=== PATIENT | female | born 1965 | race Caucasian/White ===

== ENCOUNTER 2018-03-12 21:09 | Emergency (ER) | payer MEDICAID ==
--- NOTE | 2018-03-12 21:22 | Emergency Department Record ---
History of Present Illness - General Chief complaint: Pain Stated complaint: LEFT SHOULDER PAIN Time Seen by Provider: 03/12/18 21:17 Source: Patient Mode of Arrival: Ambulatory Limitations: No limitations - History of Present Illness Initial comments: 52 yo female presents with shoulder pain for two months. She states the shoulder has been dislocated for 2 months due to a seizure. She states she was treated on 2 different occasions at [facility] but the shoulder was not reduced. She states it has not been reduced at any point in the last 2 months. She saw an orthopedist in [place] but can not remember his name. She states it was dislocated at the time of the orthopedic visit as well. She was told by him to get her seizures under control then he was see her about her dislocation. She is staying with her son in [facility]. She requests pain medication. She drove herself to the ED and is alone. She states she does not have any new symptoms or changes in her left arm function from 2 months ago. She has not been able to raise her arm in about 2 months. There is nothing new or different except she does not have any current pain medication. MD Complaint: Joint pain -: Month(s) (2) Location: Left, Shoulder -: Yes Arthralgia Radiation: Proximal Quality: Aching Consistency: Constant Improves with: Nothing Worsens with: Palpation, Weight bearing Associated Symptoms: Denies other symptoms, Arthralgias - Related Data Home Medications Medication Instructions Recorded Confirmed Last Taken Gabapentin [Neurontin] 300 mg PO TID 03/12/18 03/12/18 Unknown Levetiracetam [Keppra] 1,500 mg PO BID 03/12/18 03/12/18 Unknown Allergies Allergy/AdvReac Type Severity Reaction Status Date / Time Penicillins Allergy HIVES Verified 03/12/18 21:23 Review of Systems Constitutional: Denies: Chills, Fever, Malaise, Weakness Eyes: Denies: Eye discharge ENT: Denies: Congestion, Throat pain Respiratory: Denies: Cough, Dyspnea, Hemoptysis, Wheezes Cardiovascular: Denies: Chest pain, Palpitations, Syncope Endocrine: Denies: Fatigue Gastrointestinal: Denies: Abdominal pain, Diarrhea, Nausea, Vomiting Genitourinary: Denies: Dysuria, Urgency Musculoskeletal: Reports: As per HPI, Arthralgia Skin: Denies: Bruising, Change in color, Rash Neurological: Denies: Numbness, Weakness Psychiatric: Denies: Anxiety Hematological/Lymphatic: Denies: Easy bleeding, Easy bruising, Swollen glands Physical Exam - General General Appearance: Alert, Oriented x3, Cooperative, No acute distress Limitations: No limitations - Head Head exam: Normal inspection - Eye Eye exam: Normal appearance. negative: Conjunctival injection, Scleral icterus - ENT ENT exam: Normal exam Ear exam: Normal external inspection Nasal Exam: Normal inspection Mouth exam: Normal external inspection - Neck Neck exam: Normal inspection - Respiratory Respiratory exam: Normal lung sounds bilaterally. negative: Respiratory distress - Cardiovascular Cardiovascular Exam: Regular rate, Normal rhythm, Normal heart sounds Peripheral Pulses: 2+: Radial (L) - GI/Abdominal GI/Abdominal exam: Soft. negative: Tenderness - Rectal Rectal exam: Deferred - exam: Deferred - Extremities Extremities exam: Normal inspection, Tenderness. negative: Full ROM, Joint swelling, Normal capillary refill Image of Full Body: 1 - tender to palpation, pain with ROM, palpation has some limitations due to obesity, she is able internally rotation but only externally rotate to straight ahead. She is unable to laterally abduct. NOTE: She states this is unchanged for 2 months. - Back Back exam: Denies: CVA tenderness (R), CVA tenderness (L) - Neurological Neurological exam: Alert, Oriented X3. negative: Altered, Motor sensory deficit (livestock agent is full and intact, sensation is intact) - Psychiatric Psychiatric exam: Normal affect, Normal mood. negative: Agitated, Anxious - Skin Skin exam: Dry, Intact, Normal color, Warm Course - Reevaluation(s) Reevaluation #1: The patient maintains that the shoulder has been dislocated for 2 months. She states absolutely nothing is new or different regarding her chronic pain, and essentially no ROM in 2 months. She states she does not have pain medication at this time. Records will be obtained from [facility]. No prior visits on the EMR at [facility] 03/12/18 21:21 The XR demonstrates an anterior dislocation. I explained to the patient that I recommend reduction. I attempted for 20 minutes without sedation given she drove herself to the ED and does not have a ride. I recommend sedation. She does not have a route sales driver. I explained that given the shoulder has been dislocated 2 months I recommended a route sales driver be present as this is not acute and is essentially become elective given the long duration of dislocation. I explained the risks of doing the sedation at this time at this critical access hospital without OR, solution consultant ortho, anesthesia given the chronic nature of the dislocation and her significant co-morbidities. [facility] Records obtained. The patient was seen 02/19/18. There was a failed attempt at reduction of the left shoulder dislocation. Orthopedics was contacted at that time. She was discharged to follow up in the office with the non reduced shoulder. 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 In light of knowing the shoulder has been dislocated for weeks it is too high a risk for little benefit to sedate now considering this information. The patient agrees with this as well. [facility] doctor is located. She declined and plans to follow up as an outpatient as was the plan after prior. In summary, at this point in time the shoulder has been dislocated at least 3.5 weeks. The urgency to reduce it in a patient without a ride, with significant systemic disease of seizures make the risks greater than the benefit. She is to call her doctor and her orthopedic doctor tomorrow. I informed her she may return any time but also stressed being seen at the hospital where her orthopedic doctor has privileges would be the best plan. 03/12/18 22:30 Disposition Disposition: Discharge Clinical Impression: Dislocation, shoulder closed Qualifiers: Encounter type: initial encounter Laterality: left Qualified Code(s): S43.005A - Unspecified dislocation of left shoulder joint, initial encounter Disposition: Home, Self-Care Condition: (1) Good Instructions: Shoulder Dislocation (ED) Additional Instructions: You may return or be seen in an ER for your shoulder dislocation that has been out for two months when you have a route sales driver I STRONGLY recommend you call your family doctor and your orthopedic doctor tomorrow to discuss the plan for your shoulder that has been dislocated for 2 months. Forms: Patient Portal Access Quality - Quality Measures Quality Measures: N/A - Blood Pressure Screening Does Patient Have Any of the Following: No Blood Pressure Classification: Pre-Hypertensive BP Reading Systolic Measurement: 124 Diastolic Measurement: 76 Screening for High Blood Pressure: < Pre-Hypertensive BP, F/U Documented > [ [id number]] Pre-Hypertensive Follow-up Interventions: Referral to alternative/primary care provider.
[2018-03-12] MEDS ORDERED: KETOROLAC 30 MG/ML VIAL IVP ONE (21:52)
[2018-03-12] MEDS ORDERED: KETOROLAC 30 MG/ML VIAL IM ONE (21:54)
[2018-03-12] MEDS ORDERED: HYDROCODONE/APAP 7.5/325MG TABLET PO ONE (22:15)
--- NOTE | 2018-03-14 13:32 | RADIOLOGY REPORT ---
DATE: 03/12/2018 at 9:37 p.m. EXAM: LEFT SHOULDER. HISTORY: Left shoulder pain. Possible dislocation. TECHNIQUE: Four views of the left shoulder. COMPARISON: None. ENCOUNTER: Initial. FINDINGS: There is an anterior subcoracoid dislocation of the humeral head. There is probably a large Hill-Sachs impaction type fracture of the posterior aspect of the humeral head as well. There is some mild, streaky infiltrate in the left lung. Cervicothoracic curve to the left. IMPRESSION: 1. ANTERIOR SUBCORACOID DISLOCATION OF THE LEFT HUMERAL HEAD, PROBABLY WITH A LARGE HILL-SACHS IMPACTION FRACTURE POSTERIORLY IN THE HUMERAL HEAD WELL. 2. MILD, STREAKY INFILTRATE IN THE LEFT LUNG. JOB NUMBER: [id number] [facility]
== END 2018-03-12 22:31 | disposition home or self-care (01) ==
LOC: ER 21:09
DX: S43.085A Other dislocation of left shoulder joint, initial encounter (principal); X50.0XXA Overexertion from strenuous movement or load, initial encounter; G40.909 Epilepsy, unspecified, not intractable, without status epilepticus
CPT/HCPCS: 23650 ×2; 99283; 96372; 99284; 73030; J1885